=== PATIENT | female | born 1945 ===

== ENCOUNTER → 2017-06-26 | Outpatient (CLI) | payer MEDICARE, OTHER ==
[2017-06-26 09:52] LABS: Basophils # (auto) 0.1 uL; Basophils % (auto) 1.5 % (0.0-2.0); Eosinophils # (auto) 0.5 uL; Eosinophils % (auto) 12.2 % (0.0-7.0); Hematocrit 39.6 % (36.0-46.0); Hemoglobin 13.4 g/dL (12.2-16.2); Lymphocytes # (auto) 1.5 uL; Lymphocytes % (auto) 34.7 % (10.0-50.0); Mean Corpuscular Hemoglobin 30.9 pg (28.0-32.0); Mean Corpuscular Hgb Conc. 33.9 g/dL (32.0-36.0); Mean Corpuscular Volume 91.1 fL (80.0-100.0); Mean Platelet Volume 7.8 fL (6.9-10.8); Monocytes # (auto) 0.3 uL; Monocytes % (auto) 7.8 % (0.0-12.0); Neutrophils # (auto) 1.9 uL; Neutrophils % (auto) 43.8 % (37.0-80.0); Nucleated Red Blood Cells % 0.1 %; Platelet Count (auto) 184 10^3/uL (140-450); Red Cell Distribution Width 13.2 % (11.8-14.3); White Blood Cell 4.3 10^3/uL (4.4-10.8)
[2017-06-26 10:10] LABS: Albumin 3.7 g/dL (3.4-5.0); Bilirubin, Total 0.5 mg/dL (0.2-1.0); Calcium 9.1 mg/dL (8.5-10.1); Potassium 3.9 mmol/L (3.5-5.1); Total Protein 7.1 g/dL (6.4-8.2)
== END | disposition home or self-care (01) ==
LOC: LAB 09:10
DX: I10 Essential (primary) hypertension (principal); M06.9 Rheumatoid arthritis, unspecified; D64.9 Anemia, unspecified; Z79.899 Other long term (current) drug therapy
CPT/HCPCS: 36415; 80053; 85025; 85652; 86141